=== PATIENT | female | born 1945 | race Caucasian/White ===

== ENCOUNTER → 2017-07-21 | Outpatient (CLI) | payer OTHER ==
[~2017-07-21] MED LIST: ALBUAER19 INH; ASPI325T45 PO; ATOR80TA PO; CHOL100027 PO; DILT180C PO; DOCU100C PO; GABA1CAP PO; LATA0.009 OPB; LEVO125T72 PO; NITR0.4S UT; OMEG1CAP84 PO; OMEP20TA PO; OXYC5TAB PO; RIVA1TAB PO; SENN8.6T2 PO; ULT/50 PO
--- NOTE | 2017-07-21 15:03 | DIAGNOSTIC IMAGING REPORT ---
THYROID ULTRASOUND HISTORY: Thyroid cancer. COMPARISON: Thyroid ultrasound 04/09/2007. FINDINGS: The patient is status post thyroidectomy. There are no soft tissue masses identified within the thyroid bed. No lymphadenopathy identified. IMPRESSION: Status post thyroidectomy. No soft tissue masses identified. Electronically signed by: Jeffery Hair M.D. 07/21/2017 3:02 PM Dictated Date/Time: 07/21/2017 2:59 PM
--- NOTE | 2017-07-22 08:48 | DIAGNOSTIC IMAGING REPORT ---
NUCLEAR PARATHYROID SCAN CLINICAL HISTORY: Primary hyperparathyroidism. History of thyroid cancer status post thyroidectomy. COMPARISON STUDY: Thyroid ultrasound dated 07/21/2017. TECHNIQUE: Nuclear parathyroid scan is performed following the IV administration of 22 mCi of technetium 99m Cardiolite. Imaging was performed at 15 minutes and 3 hours. Multiplanar SPECT imaging was acquired. FINDINGS: On the initial 15 minute images there is expected activity within the myocardium and the salivary glands. There is no thyroid activity identified as the thyroid gland is surgically absent. There is no abnormal tracer deposition identified in the thyroid bed to suggest parathyroid adenoma. There are 2 tiny foci of indeterminant activity present within the mediastinum on the delayed images. One is located centrally just below the thoracic inlet and the other is located along the right cardiac border. IMPRESSION: 1. There is no abnormal tracer deposition identified in the thyroid bed. 2. There are 2 tiny indeterminant foci of activity within the mediastinum as above. Tiny foci of parathyroid tissue would be impossible to exclude. Electronically signed by: Lalo South M.D. 07/22/2017 8:47 AM Dictated Date/Time: 07/22/2017 8:30 AM
== END | disposition home or self-care (01) ==
LOC: C.ULTR 14:20
PROVIDERS: ATTEND Internal Medicine Endocrinology, Diabetes & Metabolism
DX: E21.0 Primary hyperparathyroidism (principal); C73 Malignant neoplasm of thyroid gland